=== PATIENT | female | born 1945 | race Hispanic/Latino ===

== ENCOUNTER 2017-05-14 10:05 | Emergency (ER) | payer MEDICARE ==
[~2017-05-14] VITALS: Ht 167.6 cm; Wt 86.2 kg
[2017-05-14] MEDS ORDERED: KETOROLAC TROMETHAMINE 30 MG/ML VIAL INJ STA (10:24)
[2017-05-14] MEDS ORDERED: HYDROCODONE/APAP 7.5MG-325MG 1 EA TAB PO PRN (10:30)
[2017-05-14] MEDS ORDERED: CYCLOBENZAPRINE HCL 10 MG TAB PO ONE (10:30)
[2017-05-14 11:05] LABS: BILIRUBIN,URINE NEGATIVE (NEGATIVE); KETONES,URINE NEGATIVE (NEGATIVE); LEUKOCYTE ESTERASE ,URINE NEGATIVE (NEGATIVE); NITRITE,URINE NEGATIVE (NEGATIVE); PROTEIN,URINE DIPSTICK NEGATIVE (NEGATIVE); URINE UROBILINOGEN 0.2 mg/dL (0.2 - 1)
[2017-05-14 11:10] LABS: CLARITY,URINE CLEAR (CLEAR); COLOR,URINE YELLOW (YELLOW)
--- NOTE | 2017-05-14 11:10 | Diagnostic Imaging Report ---
PROCEDURE:X-RAY LUMBAR SPINE, TWO VIEWS COMPARISON:None. INDICATIONS:LOW BACK PAIN FINDINGS: There are 5 lumbar-type vertebral bodies. AP image demonstrates trace scoliosis with the apex at L2. No listhesis on lateral image. The vertebral bodies are well-aligned. There is facet arthropathy at the lower levels. No significant disc space narrowing or osteophytic lipping. There are no fractures, lytic or blastic lesions. The sacroiliac joints are patent with mild sclerosis of the SI joints, left more severe than the right. Visualized bowel gas pattern is unremarkable. CONCLUSION: Mild dextroscoliosis. 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 Dictated by: Ismael Ramírez M.D. on 05/14/2017 at 11:11 Electronically approved by: Ismael Ramírez M.D. on 05/14/2017 at 11:11
[2017-05-14 11:17] LABS: BACTERIA,URINE FEW /HPF; EPITHELIAL CELLS,URINE FEW /LPF; RBC,URINE 0-5 /HPF (0-5); WBC,URINE (MAN) 0-5 /HPF (0-5)
== END 2017-05-14 11:42 | disposition home or self-care (01) ==
LOC: ER 10:05
DX: M54.5 Low back pain (principal); M54.41 Lumbago with sciatica, right side
CPT/HCPCS: 72100; 81001; 87086; 99283; J1885

== ENCOUNTER → 2022-05-09 | Outpatient (CLI) | payer MEDICARE ==
[~2022-05-09] MED LIST: CRESTOR10 MG PO; GLIMEPIRIDE2 MG PO; METOPROLOL TART25 MG PO; SYNTHROID125 MCG PO; ULTRAM 50MG50 MG PO; XARELTO20 MG PO; ZESTRIL2.5 MG PO
== END ==
LOC: DX 11:14
PROVIDERS: ATTEND Family Medicine Adult Medicine
DX: Z12.31 Encounter for screening mammogram for malignant neoplasm of breast (principal); M85.88 Other specified disorders of bone density and structure, other site
CPT/HCPCS: 77067; 77080

== ENCOUNTER → 2022-06-13 | Outpatient (CLI) | payer MEDICARE | LOC: RAD 15:20 | PROVIDERS: ATTEND Family Medicine Adult Medicine | DX: M25.532 Pain in left wrist (principal); W18.39XA Other fall on same level, initial encounter ==

== ENCOUNTER → 2023-06-18 | Outpatient (REF) | payer MEDICARE | LOC: US 10:35 | PROVIDERS: ATTEND Family Medicine Adult Medicine | DX: M79.662 Pain in left lower leg (principal); M79.661 Pain in right lower leg; M25.561 Pain in right knee; R60.9 Edema, unspecified | CPT/HCPCS: 76770; 93970 ==